=== PATIENT | male | born 1990 | race Caucasian/White ===

== ENCOUNTER 2023-08-27 18:21 | Emergency (ER) | payer OTHER ==
[~2023-08-27] VITALS: Ht 172.7 cm; Wt 78.6 kg
[2023-08-27] MEDS ORDERED: MORGIDOX 1X100100 MG PO (19:56)
[2023-08-27] MEDS ORDERED: Doxycycline Monohydrate 100 MG CAP PO ONE (20:00)
[2023-08-27 20:20] VITALS: BP 131/92
== END 2023-08-27 20:20 | disposition home or self-care (01) ==
LOC: ED 18:21
DX: L02.11 Cutaneous abscess of neck (principal)